=== PATIENT | female | born 1975 | race Two or more races ===

== ENCOUNTER 2022-01-22 04:15 | Day surgery (SDC) | payer OTHER ==
[2022-01-21 12:12] VITALS: BMI 38.0
[2022-01-22] MEDS ORDERED: DEXAMETHASONE SOD PHOSPHATE 4 MG/1 ML VIAL ONE (13:10)
[2022-01-22] MEDS ORDERED: GLYCOPYRROLATE 0.2 MG/1 ML VIAL ONE (13:10)
[2022-01-22] MEDS ORDERED: LIDOCAINE HCL/PF 2% SDV 5ML VIAL ONE (13:10)
[2022-01-22] MEDS ORDERED: ONDANSETRON 4 MG/2 ML VIAL ONE (13:10)
[2022-01-22] MEDS ORDERED: KETOROLAC TROMETHAMINE 30 MG/1 ML VIAL ONE (13:10)
[2022-01-22] MEDS ORDERED: PROPOFOL 20 ML ONE ×2 (13:10)
[2022-01-22] MEDS ORDERED: MIDAZOLAM HCL 2 MG/2 ML SINGLE DOSE VIAL ONE (13:11)
[2022-01-22] MEDS ORDERED: ceFAZolin SODIUM 1 GM VIAL IVPB ONE (13:30)
[2022-01-22] MEDS ORDERED: ceFAZolin SODIUM 1 GM VIAL ONE (13:36)
[2022-01-22] MEDS ORDERED: SILVER NITRATE 75% APPLIC STCK 1 PKT EACH TP ONE (14:08)
[2022-01-22 16:42] VITALS: BP 130/76; PULSE 84; TEMP 97.4
== END 2022-01-22 16:25 | disposition home or self-care (01) ==
LOC: JASU-SURG 04:15
PROVIDERS: ATTEND Obstetrics & Gynecology
PROC: 0UDB8ZX Extraction of Endometrium, Via Natural or Artificial Opening Endoscopic, Diagnostic (ICD-10-PCS; principal; 2022-01-22 13:00)
DX: D25.9 Leiomyoma of uterus, unspecified (principal)
CPT/HCPCS: 81025; 88305-TC; 94760

== ENCOUNTER 2022-06-18 04:51 | Day surgery (SDC) | payer OTHER ==
[2022-06-17 11:19] VITALS: BMI 36.5
[2022-06-18] MEDS ORDERED: HEPARIN NA (PORCINE) 5,000 UNITS/ML 1ML VIAL ONE (09:10)
[2022-06-18] MEDS ORDERED: KETOROLAC TROMETHAMINE 30 MG/1 ML VIAL ONE (09:24)
[2022-06-18] MEDS ORDERED: HYDROmorphone HCl 2 MG/ML VIAL ONE (09:24)
[2022-06-18] MEDS ORDERED: FENTANYL CITRATE/PF 50 MCG/ML VIAL ONE ×2 (09:25→10:18)
[2022-06-18] MEDS ORDERED: MIDAZOLAM HCL 2 MG/2 ML SINGLE DOSE VIAL ONE (09:25)
[2022-06-18] MEDS ORDERED: SODIUM CHLORIDE 500 ML IV ONE (10:05)
[2022-06-18] MEDS ORDERED: FENTANYL CITRATE/PF 50 MCG/ML VIAL IVPUSH ONE ×2 (10:14→10:25)
[2022-06-18] MEDS ORDERED: MIDAZOLAM HCL 2 MG/2 ML SINGLE DOSE VIAL IVPUSH ONE ×2 (10:14→10:25)
[2022-06-18] MEDS ORDERED: KETOROLAC TROMETHAMINE 15 MG/ML VIAL IVPUSH ONE ×2 (10:49→11:06)
[2022-06-18] MEDS ORDERED: HYDROmorphone HCl 2 MG/ML VIAL IVPUSH ONE (11:20)
[2022-06-18] MEDS ORDERED: HYDROmorphone *PCA* 10MG/50ML DISP.SYRIN ONE (11:59)
[2022-06-18] MEDS ORDERED: HYDROmorphone *PCA* 10MG/50ML DISP.SYRIN PCA ONE (12:05)
[2022-06-18] MEDS ORDERED: HYDROmorphone *PCA* 10MG/50ML DISP.SYRIN PCA SCH (13:00)
[2022-06-18] MEDS ORDERED: ONDANSETRON 4 MG/2 ML VIAL IVPUSH PRN (13:05)
[2022-06-18] MEDS ORDERED: SODIUM CHLORIDE 500 ML IV SCH (14:00)
[2022-06-19] MEDS ORDERED: oxyCODONE HCL 5 MG TABLET PO ONE ×2 (00:18→09:10)
[2022-06-19 01:00] VITALS: RESP 18
[2022-06-19 11:31] LABS: BASO % 0.4 % (0-2.0); EOS % 0.3 % (0-4.5); HEMATOCRIT 30.9 % (32.4-45.2); HEMOGLOBIN 9.4 GM/dL (10.7-15.3); MCH 20.2 pg (25.7-33.7); MCHC 30.3 g/dl (32.0-36.0); MEAN CELL VOLUME 66.5 fl (80-96); MEAN PLT VOLUME 7.8 fl (7.5-11.1); MONO % 9.5 % (3.8-10.2); NEUT % 78.8 % (42.8-82.8); PLATELET COUNT 430 10^3/uL (134-434); RBC 4.65 M/mm3 (3.60-5.2); RDW 19.4 % (11.6-15.6); WHITE BLOOD COUNT 10.4 K/mm3 (4.0-10.0)
[2022-06-19 11:49] LABS: BLOOD UREA NITROGEN 5.4 mg/dL (7-18); CALCIUM 9.1 mg/dL (8.5-10.1); MAGNESIUM 2.4 mg/dL (1.8-2.4)
[2022-06-19 11:52] LABS: PHOSPHOROUS 3.2 mg/dL (2.5-4.9)
[2022-06-19 11:53] LABS: CREATININE 0.7 mg/dL (0.55-1.3)
[2022-06-19 12:00] LABS: ANISOCYTOSIS 3+; MACROCYTOSIS 0
[2022-06-19 15:13] VITALS: BP 142/84; PULSE 74; TEMP 98.9
[2022-06-19] MEDS ORDERED: FE POLYSAC/CYANOCOBAL/FA COMBO CAPSULE PO SCH (16:30)
== END 2022-06-19 17:23 | disposition home or self-care (01) ==
LOC: JASUSAT 04:51 → SUATTDRO 04:51 → JRADIR 04:51 → J5S 14:39 → JASUSAT 06-19 17:23
PROVIDERS: ATTEND Internal Medicine
PROC: 04LE3DT Occlusion of Right Uterine Artery with Intraluminal Device, Percutaneous Approach (ICD-10-PCS; 2022-06-18)
PROC: 04LF3DU Occlusion of Left Uterine Artery with Intraluminal Device, Percutaneous Approach (ICD-10-PCS; principal; 2022-06-18 10:00)
DX: D25.9 Leiomyoma of uterus, unspecified (principal); D50.9 Iron deficiency anemia, unspecified
CPT/HCPCS: 36415; 37243; 80048; 82728; 83540; 83550; 83735; 84100; 85025; 94010; 94760; C1769; C1887

== ENCOUNTER 2023-01-21 21:45 | Emergency (ER) | payer OTHER ==
[2023-01-21 21:57] VITALS: BP 126/85; PULSE 81; RESP 17; TEMP 97.6; BMI 36.5
== END 2023-01-21 23:30 | disposition left against medical advice (07) ==
LOC: JERFT 21:45 → JER 21:45 → JERFT 23:30
DX: R07.9 Chest pain, unspecified (principal)
CPT/HCPCS: 93005; 93010; 99283-25